=== PATIENT | female | born 1950 | race Caucasian/White ===

== ENCOUNTER → 2019-01-10 | Outpatient (CLI) | payer OTHER ==
[~2019-01-10] MED LIST: BENTYL20 MG PO; DARVOCET-N 1001 EAC1 PO; LEVOTHYROXIN0.125 M1; LEVOTHYROXIN0.125 M2 PO; NORCO 10-325 T1 EACH; PROZAC40 MG PO; XANAX 0.5 MG0.5 MG PO; ZOCOR 20 MG TAB20 M1 PO; ZOFRAN 4 MG ORAL4 M1 DIS
== END ==
LOC: M.RAD 12:05
DX: M19.012 Primary osteoarthritis, left shoulder (principal); M47.817 Spondylosis without myelopathy or radiculopathy, lumbosacral region; I77.810 Thoracic aortic ectasia; M48.07 Spinal stenosis, lumbosacral region; F17.200 Nicotine dependence, unspecified, uncomplicated

== ENCOUNTER 2020-07-03 08:58 | Emergency (ER) | payer OTHER ==
[~2020-07-03] VITALS: Ht 165.1 cm; Wt 60.3 kg
[2020-07-03] MEDS ORDERED: ASA81BEC PO (09:14)
[2020-07-03] MEDS ORDERED: CELEXA 10 MG TA10 M1 PO (09:14)
[2020-07-03] MEDS ORDERED: VITAMIN D350 MC3 PO (09:14)
[2020-07-03] MEDS ORDERED: VITAMIN B-121000 MC2 SUBLING (09:15)
[2020-07-03 09:40] LABS: APTT 28.9 Seconds (25.0-31.3); PROTIME 10.7 Seconds (9.20-11.50)
[2020-07-03 09:41] LABS: ABSOLUTE BASOPHILS 0.1 thou/uL (0.0-0.2); ABSOLUTE EOSINOPHILS 0.1 thou/uL (0.0-0.7); ABSOLUTE LYMPHOCYTES 2.2 thou/uL (0.8-5.3); ABSOLUTE MONOCYTES 0.7 thou/uL (0.0-1.2); ABSOLUTE NEUTROPHILS 9.1 thou/uL (1.6-8.1); BASOPHILS 0.4 %; EOSINOPHILS 1.1 %; HEMOGLOBIN 11.5 gm/dL (12.0-15.0); LYMPHOCYTES 17.7 %; MCH 29.1 pg (26.0-34.0); MCHC 32.9 g/dL (28.0-37.0); MCV 88.4 fL (80.0-100.0); MONOCYTES 6.1 %; MPV 7.6 fl. (7.2-11.1); NUCLEATED RBCS 0 /100WBC; PLATELET COUNT* 287 thou/uL (150-400); POLYS 74.7 %; RBC 3.96 mil/uL (4.20-5.00); RDW-CV 15.7 % (10.5-14.5); WBC 12.2 thou/uL (4.0-11.0)
[2020-07-03 09:44] LABS: CALCIUM 8.5 mg/dL (8.5-10.1); CREATININE 0.8 mg/dL (0.6-1.3); POTASSIUM 3.8 mmol/L (3.5-5.1)
[2020-07-03 09:48] LABS: ALBUMIN 3.7 g/dL (3.4-5.0); CK-MB MASS 0.7 ng/mL (<0.5-3.6); TOTAL BILIRUBIN 0.6 mg/dL (<0.1-1.0); TOTAL PROTEIN 7.1 g/dL (6.4-8.2)
[2020-07-03] MEDS ORDERED: NORCO 5-325 TA1 EAC2 PO (10:15)
[2020-07-03 10:35] VITALS: BP 130/75
--- NOTE | 2020-07-03 15:58 | EKG ---
[place] [address] ELECTROCARDIOGRAM REPORT Name: DEWAYNE CRUZ Room: [facility]#: [id number] Admission: 07/03/20 Attend Phys: Discharge: 07/03/20 Date of : 50 Date of Service: 07/03/2008 Report #: [id number] THIS REPORT FOR: //name// [facility] ED Test Date: 2020-07-03 Test Time: 09:08:26 Pat Name: DEWAYNE CRUZ Department: Room: Gender: F Ssis Etl Developer: CCD : 1950 Requested By: Renan Gipson Order Number: [id number] MD: Sachin Rodriguez Measurements Intervals [place] Rate: 68 P: 0 RI: 181 QRS: -11 QRSD: 94 T: 8 QT: 391 QTc: 416 Interpretive Statements Sinus rhythm Borderline T abnormalities, inferior leads Baseline wander in lead(s) II,III Compared to ECG 05/16/2011 14:34:30 T-wave abnormality now present Electronically Signed On 07-03-2020 15:58:40 CDT by Sachin Rodriguez [email or web address] <ELECTRONICALLY SIGNED> By: Sachin Rodriguez MD, [facility] 07/03/20 [id number] Sachin Rodriguez MD, [facility] /EPI
== END 2020-07-03 10:35 | disposition home or self-care (01) ==
LOC: M.ERS 08:58
PROVIDERS: Family Medicine
DX: J44.9 Chronic obstructive pulmonary disease, unspecified (principal); E89.0 Postprocedural hypothyroidism; F17.210 Nicotine dependence, cigarettes, uncomplicated; Z88.8 Allergy status to other drugs, medicaments and biological substances; S23.41XA Sprain of ribs, initial encounter; X50.9XXA Other and unspecified overexertion or strenuous movements or postures, initial encounter; Y93.89 Activity, other specified; Y92.89 Other specified places as the place of occurrence of the external cause; Y99.8 Other external cause status

== ENCOUNTER → 2020-11-08 | Outpatient (CLI) | payer OTHER ==
[~2020-11-08] MED LIST changes: +ASA81BEC PO; +CELEXA 10 MG TA10 M1 PO; +NORCO 5-325 TA1 EAC2 PO; +VITAMIN B-121000 MC2 SUBLING; +VITAMIN D350 MC3 PO
== END ==
LOC: M.RAD 10-22 09:02 → M.CT 12:22 → M.RAD 12:22 → M.CT 13:30 → M.RAD 15:30
PROVIDERS: ATTEND Internal Medicine
DX: M81.0 Age-related osteoporosis without current pathological fracture (principal); M85.88 Other specified disorders of bone density and structure, other site

== ENCOUNTER → 2020-11-21 | Outpatient (CLI) | payer OTHER ==
[2020-11-21 10:09] LABS: CREATININE 0.7 mg/dL (0.6-1.3)
== END ==
LOC: M.LAB 09:45 → M.CT 11:00
PROVIDERS: ATTEND Internal Medicine
DX: J44.9 Chronic obstructive pulmonary disease, unspecified (principal); J32.0 Chronic maxillary sinusitis; R53.83 Other fatigue; R83.4 Abnormal immunological findings in cerebrospinal fluid; J98.11 Atelectasis; M51.37 Other intervertebral disc degeneration, lumbosacral region; I72.8 Aneurysm of other specified arteries; I51.7 Cardiomegaly; R10.13 Epigastric pain; E03.9 Hypothyroidism, unspecified; F17.200 Nicotine dependence, unspecified, uncomplicated

== ENCOUNTER → 2021-07-23 | Outpatient (CLI) | payer OTHER ==
[~2021-07-23] MED LIST changes: +CALCIUM500 MG PO; +FLONASE 0.05%50 MCG NARES; +HYDROCODON-ACE1 EAC7 PO; +HYDROCODONE-AP1 EA11 PO; +MAGNESIUM250 M1 PO; +PRAVACHOL 20 MG20 M1 PO; +PROAIR HFA8.5 GM INH; +TIZANIDINE HCL2 M1 PO; -VITAMIN B-121000 MC2 SUBLING; +VITAMIN B-12500 MC5 SUBLING; -VITAMIN D350 MC3 PO; +Vitamin D3 PO; +ZINC50 M1 PO
== END ==
LOC: M.PC 08:35
PROVIDERS: ATTEND Anesthesiology Pain Medicine
DX: M54.16 Radiculopathy, lumbar region (principal); M25.559 Pain in unspecified hip; J44.9 Chronic obstructive pulmonary disease, unspecified; F41.8 Other specified anxiety disorders; E07.89 Other specified disorders of thyroid; I72.8 Aneurysm of other specified arteries; E78.5 Hyperlipidemia, unspecified; Z88.8 Allergy status to other drugs, medicaments and biological substances; Z79.899 Other long term (current) drug therapy; F17.200 Nicotine dependence, unspecified, uncomplicated

== ENCOUNTER → 2021-08-22 | Outpatient (CLI) | payer OTHER ==
[~2021-08-22] MED LIST changes: +TIZANIDINE HCL 22 M1 PO
== END ==
LOC: M.PC 08:38
PROVIDERS: ATTEND Anesthesiology Pain Medicine
DX: J44.9 Chronic obstructive pulmonary disease, unspecified (principal); M54.2 Cervicalgia; F41.9 Anxiety disorder, unspecified; F32.A Depression, unspecified; E78.5 Hyperlipidemia, unspecified; K44.9 Diaphragmatic hernia without obstruction or gangrene; M54.40 Lumbago with sciatica, unspecified side; M54.16 Radiculopathy, lumbar region; M25.559 Pain in unspecified hip; I72.8 Aneurysm of other specified arteries; E07.9 Disorder of thyroid, unspecified; F17.200 Nicotine dependence, unspecified, uncomplicated; Z79.899 Other long term (current) drug therapy

== ENCOUNTER → 2021-09-24 | Outpatient (CLI) | payer OTHER ==
[~2021-09-24] MED LIST changes: +NARCAN4 MG NARES
== END ==
LOC: M.PC 07:48
PROVIDERS: ATTEND Anesthesiology Pain Medicine
DX: M54.16 Radiculopathy, lumbar region (principal); M54.2 Cervicalgia; J44.9 Chronic obstructive pulmonary disease, unspecified; K44.9 Diaphragmatic hernia without obstruction or gangrene; F41.9 Anxiety disorder, unspecified; F34.9 Persistent mood [affective] disorder, unspecified; E78.5 Hyperlipidemia, unspecified; I72.8 Aneurysm of other specified arteries; E07.89 Other specified disorders of thyroid; I10 Essential (primary) hypertension; Z79.82 Long term (current) use of aspirin; Z88.8 Allergy status to other drugs, medicaments and biological substances; Z79.899 Other long term (current) drug therapy

== ENCOUNTER → 2021-10-22 | Outpatient (CLI) | payer OTHER | LOC: M.PC 08:26 | PROVIDERS: ATTEND Anesthesiology Pain Medicine | DX: M54.2 Cervicalgia (principal); M54.50 Low back pain, unspecified; J44.9 Chronic obstructive pulmonary disease, unspecified; K44.9 Diaphragmatic hernia without obstruction or gangrene; E78.5 Hyperlipidemia, unspecified; E07.9 Disorder of thyroid, unspecified; I72.8 Aneurysm of other specified arteries; F40.9 Phobic anxiety disorder, unspecified; F34.9 Persistent mood [affective] disorder, unspecified; Z88.8 Allergy status to other drugs, medicaments and biological substances; Z79.82 Long term (current) use of aspirin; Z79.899 Other long term (current) drug therapy ==